=== PATIENT | female | born 1935 ===

== ENCOUNTER → 2020-10-01 | Emergency (ER) | payer OTHER ==
[~2020-10-01] VITALS: Ht 154.9 cm; Wt 81.6 kg
[~2020-10-01] MED LIST: ZESTRIL20 MG
== END | disposition left against medical advice (07) ==
LOC: ER 07:16
DX: K56.690 Other partial intestinal obstruction (principal); K43.0 Incisional hernia with obstruction, without gangrene; R10.84 Generalized abdominal pain; I10 Essential (primary) hypertension

== ENCOUNTER 2020-12-21 09:45 | Inpatient (IN) | payer OTHER ==
[~2020-12-21] VITALS: Ht 154.9 cm; Wt 78.9 kg
[2020-12-21] MEDS ORDERED: PEPCID AC20 MG PO (13:58)
[2020-12-21] MEDS ORDERED: ACID REDUCER20 M1 PO (13:58)
[2020-12-21] MEDS ORDERED: GABAPENTIN400 MG PO (13:58)
[2020-12-28] MEDS ORDERED: OMEPRAZOLE20 MG (08:25)
[2020-12-28] MEDS ORDERED: VALACYCLOVIR1000 MG (08:25)
[2020-12-28] MEDS ORDERED: ATORVASTATIN CA20 MG (08:26)
[2020-12-28] MEDS ORDERED: OFLOXACIN5 ML (08:26)
[2020-12-28] MEDS ORDERED: LISINOPRIL-HCT1 EAC2 (08:26)
[2020-12-28] MEDS ORDERED: SIMETHICONE125 M2 (08:26)
[2020-12-28] MEDS ORDERED: MAXIMUM D3325 MCG (08:26)
[2020-12-28] MEDS ORDERED: GABAPENTIN600 MG (08:27)
[2020-12-30] MEDS ORDERED: ULTRAM50 MG PO (10:42)
[2020-12-30] MEDS ORDERED: TYLENOL ARTHRI650 MG PO (10:42)
== END 2020-12-30 12:21 | disposition home or self-care (01) | DRG 352 ==
LOC: O/R 12-28 06:01 → SURH 12-28 06:01
PROVIDERS: ADMIT Surgery; ATTEND Surgery
PROC: 0YU64JZ Supplement Left Inguinal Region with Synthetic Substitute, Percutaneous Endoscopic Approach (ICD-10-PCS; 2020-12-28)
PROC: 0WQF4ZZ Repair Abdominal Wall, Percutaneous Endoscopic Approach (ICD-10-PCS; 2020-12-28)
PROC: 0KP Muscles, Removal (ICD-10-PCS; 2020-12-28)
PROC: 0WUF4JZ Supplement Abdominal Wall with Synthetic Substitute, Percutaneous Endoscopic Approach (ICD-10-PCS; principal; 2020-12-28 07:00)
DX: K43.0 Incisional hernia with obstruction, without gangrene (principal); K40.90 Unilateral inguinal hernia, without obstruction or gangrene, not specified as recurrent; K43.9 Ventral hernia without obstruction or gangrene

== ENCOUNTER 2022-02-19 10:00 | Inpatient (IN) | payer OTHER ==
[~2022-02-19] VITALS: Ht 154.9 cm; Wt 78.0 kg
[~2022-02-19 10:00] MED LIST changes: +ACID REDUCER20 M1 PO; +ATORVASTATIN CA20 MG; +GABAPENTIN400 MG PO; +GABAPENTIN600 MG; +LISINOPRIL-HCT1 EAC2; +MAXIMUM D3325 MCG; +OFLOXACIN5 ML; +OMEPRAZOLE20 MG; +PEPCID AC20 MG PO; +SIMETHICONE125 M2; +TYLENOL ARTHRI650 MG PO; +ULTRAM50 MG PO; +VALACYCLOVIR1000 MG
[2022-02-19] MEDS ORDERED: GABAPENT PO (14:06)
[2022-02-19] MEDS ORDERED: DONEPEZIL HCL5 MG PO (17:51)
[2022-02-19] MEDS ORDERED: PRED FORTE5 ML (17:53)
[2022-02-19] MEDS ORDERED: NAMENDA5 MG PO (17:53)
[2022-02-22] MEDS ORDERED: ULTRAM50 MG PO (07:32)
[2022-02-22] MEDS ORDERED: PEPCID AC20 MG PO (07:32)
[2022-02-22] MEDS ORDERED: TYLENOL ARTHRI650 MG PO (07:32)
[2022-02-22] MEDS ORDERED: MIRALAX17 GM PO (07:32)
[2022-02-22] MEDS ORDERED: KETO10TA2 PO (07:32)
== END 2022-02-22 23:38 | disposition home or self-care (01) | DRG 355 ==
LOC: SURG 02-21 10:00 → SURH 02-21 13:15 → SURG 02-21 13:30 → SURH 02-21 20:30
PROVIDERS: ADMIT Surgery; ATTEND Surgery
PROC: 0WUF4JZ Supplement Abdominal Wall with Synthetic Substitute, Percutaneous Endoscopic Approach (ICD-10-PCS; principal; 2022-02-21)
PROC: 0KXK0ZZ Transfer Right Abdomen Muscle, Open Approach (ICD-10-PCS; 2022-02-21)
DX: K43.0 Incisional hernia with obstruction, without gangrene (principal); Z20.822 Contact with and (suspected) exposure to COVID-19